=== PATIENT | female | born 1945 | race Caucasian/White ===

== ENCOUNTER 2016-04-20 06:41 | Day surgery (SDC) | payer BC ==
--- NOTE | ~2016-04-20 | OP ---
Record Of Operation [facility] [address] [place]. [address] NAME: MICHAEL ENRIQUEZ : 41 STATUS : REG [facility] [place] PAT#: [id number] AGE: 71 ADM/REG DATE : 04/20/16 MR#: [id number] REPORT SERV DATE: 04/20/16 DICTATED BY: STEFANIE BORGES DATE: 04/20/16 REPORT STATUS : Draft TRANSCRIBED BY: KHUSHI DATE: 04/20/16 DATE OF PROCEDURE: PREOPERATIVE DIAGNOSIS: Right breast invasive lobular cancer. POSTOPERATIVE DIAGNOSIS: Right breast invasive lobular cancer. PROCEDURE: 1. Right breast segmentectomy. 2. Right axillary sentinel lymph node biopsy. INDICATION FOR THE PROCEDURE: Ms. Enriquez is a 71-year-old healthy female with a small low- grade low aggression breast cancer. She has a small hematoma which is palpable and visible with ultrasound with clip indwelling. She is strongly motivated for breast preservation and is a wonderful candidate. I have held her aspirin as she did bruise quite a bit more than the average patient for her biopsy. We will keep her off her aspirin until next Saturday. The patient presented for lymphoscintigraphy scan earlier today showing good uptake in the right axilla in the normal anatomic position. OPERATIVE FINDINGS: After appropriate consent was noted on the chart, the patient was taken to the operating room in a supine position. She was placed under general anesthesia without any complication. The gamma probe was placed to the right axilla and good uptake noted. Methylene blue was not needed. The right breast and axilla were prepped and draped in sterile fashion. An incision was made over the palpable hematoma. Sharp dissection carried down to the level of the breast parenchyma and flaps created around the palpable hematoma in all directions. The area was excised fully, marked with sutures and sent for an immediate evaluation for pathology for margin status. Pathology noted that the clip and indwelling tumor appeared to be centrally located in hematoma, we are closest to the inferior edge. An additional small inferior specimen was taken. This was marked with stitches and sent for permanent pathology. The sentinel node biopsy was able to be performed through the breast incision. The gamma probe was utilized to excise 2 soft grossly non-abnormal lymph nodes with ex Vivo counts of 17,000 and 4000. These were sent for permanent pathology by new guidelines. The wound was copiously irrigated with warm saline and hemostasis was achieved. Local anesthetic was infiltrated in the skin and soft tissues. The incision was closed in two layers of suture. Skin was cleansed and dried. Dermabond overlaid. Once the Dermabond had dried, burn fluff and a binder were placed on the patient. The patient was awoken from anesthesia without complication. She was taken to the PACU in stable condition for recovery. All counts were correct at the end of the case. ESTIMATED BLOOD LOSS: Was 35 mL. COMPLICATIONS: None. SPECIMEN: 1. Right breast segment 10 o'clock. 2. Right breast new inferior margin. Record Of Operation [address] [place]. [address] NAME: MICHAEL ENRIQUEZ : 41 STATUS : REG [facility] [place] PAT#: [id number] AGE: 71 ADM/REG DATE : 04/20/16 MR#: [id number] REPORT SERV DATE: 04/20/16 DICTATED BY: STEFANIE BORGES DATE: 04/20/16 REPORT STATUS : Draft TRANSCRIBED BY: KHUSHI DATE: 04/20/16 3. Right axillary sentinel node x2. VIOLA/KHUSHI Stefanie Borges MD / [id number] CC: MD Samara Cha M.D. [facility]
[~2016-04-20 06:41] MED LIST: AFRIN15 NAS; ALLERGY NASAL SPRAY NAS; CALCIUM PO; CLARIT10 PO; CO Q-10100 MG PO; ISOPTIN SR120 MG PO; LIPITOR80 MG PO; MAGNESIUM OXIDE TAB PO; MAGOX4 PO; MCZ25 PO; PRILO PO; PRINZIDE1 TA1 PO; T PO; VITAMIN B PO; VITAMIN D PO; VITAMIN E PO
== END 2016-04-20 17:13 | disposition home or self-care (01) ==
LOC: SDC 06:41
PROVIDERS: Surgery Surgical Oncology
PROC: 07B50ZX Excision of Right Axillary Lymphatic, Open Approach, Diagnostic (ICD-10-PCS; 2016-04-20)
PROC: 0HBT0ZX Excision of Right Breast, Open Approach, Diagnostic (ICD-10-PCS; principal; 2016-04-20 09:30)
DX: C50.411 Malignant neoplasm of upper-outer quadrant of right female breast (principal); I10 Essential (primary) hypertension; E78.00 Pure hypercholesterolemia, unspecified; E78.5 Hyperlipidemia, unspecified; K21.9 Gastro-esophageal reflux disease without esophagitis; Z17.0 Estrogen receptor positive status [ER+]; Z90.710 Acquired absence of both cervix and uterus; Z90.49 Acquired absence of other specified parts of digestive tract; Z98.890 Other specified postprocedural states; Z88.0 Allergy status to penicillin; Z88.2 Allergy status to sulfonamides; Z79.899 Other long term (current) drug therapy; Z86.73 Personal history of transient ischemic attack (TIA), and cerebral infarction without residual deficits
CPT/HCPCS: 71020; 78195; 80053; 85025; 88305; 88307; 88342; 93005; A9541; J0690; J2405; J3010